=== PATIENT | male | born 1995 | race Caucasian/White ===

== ENCOUNTER 2019-02-18 08:05 | Day surgery (SDC) | payer OTHER ==
[2019-02-18] VITALS (8 sets, daily range): BP systolic 115–128; BP diastolic 66–82
[~2019-02-18] VITALS: Ht 185.4 cm; Wt 90.7 kg
[~2019-02-18 08:05] MED LIST: Bacitracin 50000 Units Vial ONE; Betadine 10% Oint 30gm TOPIC ONE; Bupivacaine 0.25% Inj 30ml INJ ONE; Dexamethasone 4mg/ml vial ONE; Lidocaine 1% Plain 30 ml INJ ONE; ceFAZolin sod 1 GM in NS 55 ML IVPB ONE
[2019-02-18 08:55] LABS: BASOPHILS % (AUTO) 2.4 % (0.0-2.0); EOSINOPHILS % (AUTO) 2.1 % (0.0-3.0); HEMATOCRIT 46.5 % (42.0-52.0); HEMOGLOBIN 15.9 G/DL (14.2-18.0); LYMPHOCYTES % (AUTO) 36.2 % (20.0-45.0); MEAN CORPUSCULAR VOLUME 89 FL (80-99); MONOCYTES % (AUTO) 8.3 % (1.0-10.0); PLATELET COUNT 225 K/UL (150-450); RED BLOOD COUNT 5.25 M/UL (4.70-6.10); RED CELL DISTRIBUTION WIDTH 12.1 % (11.6-14.8); WHITE BLOOD COUNT 5.4 K/UL (4.8-10.8)
[2019-02-18 09:01] LABS: INR 1.1 (0.9-1.1)
[2019-02-18 09:09] LABS: ANION GAP 9 mmol/L (5-15); BLOOD UREA NITROGEN 16 mg/dL (7-18); CALCIUM 9.4 MG/DL (8.5-10.1); CARBON DIOXIDE 26 MMOL/L (21-32); CHLORIDE 104 MMOL/L (98-107); POTASSIUM 4.3 MMOL/L (3.5-5.1); SODIUM 138 MMOL/L (136-145)
--- NOTE | 2019-02-18 09:09 | Pre-Procedure Note/Attestation ---
Pre-Procedure Note/Attestation Complete Prior to Procedure Planned Procedure: bilateral Procedure Narrative: total nail avulsion with matrixectomy and reduction of hypertrophic nail folds bilateral hallux and 2,3,4,5, bilateral Indications for Procedure Pre-Operative Diagnosis: Painful mycotic ingrown toenail bilateral hallux and 2,3,4,5,bilateral Attestation I attest that I discussed the nature of the procedure; its benefits; risks and complications; and alternatives (and the risks and benefits of such alternatives ), prior to the procedure, with the patient (or the patient's legal patient services representative). I attest that, if there was a reasonable possibility of needing a blood transfusion, the patient (or the patient's legal patient services representative) was given the [place] Department [employer] standardized written summary, pursuant to the Sabino Yonas Blood Safety Act ([place] Health and Safety Code # 1645, as amended). I attest that I re-evaluated the patient just prior to the surgery and that there has been no change in the patient's H&P, except as documented below: Chaim Ram DPM February 18, 2019 09:09
[2019-02-18] MEDS ORDERED: ADDERAL20 MG ORAL (10:03)
[2019-02-18] MEDS ORDERED: KLONOPIN0.5 MG ORAL (10:03)
--- NOTE | 2019-02-18 10:06 | Anethesia Preoperative Eval ---
Anesthesia Pre-op PMH/ROS General Date of Evaluation: February 18, 2019 Time of Evaluation: 10:00 Anesthesiologist: KERA Albert ASA Score: ASA 1 Mallampati Score Class I : Soft palate, uvula, fauces, pillars visible Class II: Soft palate, uvula, fauces visible Class III: Soft palate, base of uvula visible Class IV: Only hard plate visible Mallampati Classification: Class I Surgeon: Shermanian Diagnosis: Ingrown toe nails Surgical Procedure: toe nail avulsion with matretoctomy Anesthesia History: none Family History: no anesthesia problems Allergies: Coded Allergies: No Known Allergies (Unverified , 02/17/19) Medications: see eMAR Patient NPO?: Yes NPO Date: February 18, 2019 NPO Time: 00:00 Past Medical History Cardiovascular: Denies: HTN, CAD, OR, valve dz, arrhythmia, other Pulmonary: Denies: asthma, COPD, ROWDY, other Gastrointestinal/Genitourinary: Denies: GERD, CRI, ESRD, other Neurologic/Psychiatric: Reports: depression/anxiety, other - ADHD; Denies: dementia, CVA, TIA Endocrine: Denies: DM, hypothyroidism, steroids, other HEENT: Denies: cataract (L), cataract (R), glaucoma, MARSHALL (L), MARSHALL (R), other Hematology/Immune: Denies: anemia, DVT, bleeding disorder, other Musculoskeletal/Integumentary: Reports: other - ingrown toe nail xx 9 PMH Narrative: as noted above PSxH Narrative: wisdom teeth extraction Anesthesia Pre-op Phys. Exam Physician Exam Last Vital Signs Date Time Temp Pulse Resp B/P (MAP) Pulse Ox O2 Delivery O2 Flow Rate FiO2 02/18/19 09:54 98.5 62 18 123/66 95 Room Air Constitutional: NAD Neurologic: other - alert & oriented Cardiovascular: RRR Respiratory: CTA Gastrointestinal: S/NT/ND Airway Exam Mallampati Score: Class I Neck: FROM TMD: > 3 FB ROM: full Dentures: no upper, no lower Anesthesia Pre-op A/P Labs Hematology Test 02/18/19 08:35 White Blood Count 5.4 K/UL (4.8-10.8) Red Blood Count 5.25 M/UL (4.70-6.10) Hemoglobin 15.9 G/DL (14.2-18.0) Hematocrit 46.5 % (42.0-52.0) Mean Corpuscular Volume 89 FL (80-99) Mean Corpuscular Hemoglobin 30.3 PG (27.0-31.0) Mean Corpuscular Hemoglobin Concent 34.2 G/DL (32.0-36.0) Red Cell Distribution Width 12.1 % (11.6-14.8) Platelet Count 225 K/UL (150-450) Mean Platelet Volume 7.3 FL (6.5-10.1) Neutrophils (%) (Auto) 51.0 % (45.0-75.0) Lymphocytes (%) (Auto) 36.2 % (20.0-45.0) Monocytes (%) (Auto) 8.3 % (1.0-10.0) Eosinophils (%) (Auto) 2.1 % (0.0-3.0) Basophils (%) (Auto) 2.4 % (0.0-2.0) H Coagulation Test 02/18/19 08:35 Prothrombin Time 11.1 SEC (9.30-11.50) Prothromb Time International Ratio 1.1 (0.9-1.1) Activated Partial Thromboplast Time 26 SEC (23-33) Chemistry Test 02/18/19 08:35 Sodium Level 138 MMOL/L (136-145) Potassium Level 4.3 MMOL/L (3.5-5.1) Chloride Level 104 MMOL/L (98-107) Carbon Dioxide Level 26 MMOL/L (21-32) Anion Gap 9 mmol/L (5-15) Blood Urea Nitrogen 16 mg/dL (7-18) Creatinine 1.0 MG/DL (0.55-1.30) Estimat Glomerular Filtration Rate > 60 mL/min (>60) Glucose Level 104 MG/DL (74-106) Calcium Level 9.4 MG/DL (8.5-10.1) Troponin I 0.000 ng/mL (0.000-0.056) Studies Pre-op Studies: EKG - SR Risk Assessment & Plan Assessment: ASA 1, ok to proceed Plan: MAC Status Change Before Surgery: No Pre-Antibiotics Drug: Chinyere Shannon CRNA February 18, 2019 10:06
--- NOTE | 2019-02-18 11:06 | Diagnostic Imaging Report ---
Indication: Foot Pain Comparison: None Findings: 3 views of the right foot were obtained. No acute fractures, malalignment, erosions or periostitis are identified. Soft tissues are unremarkable. Impression: Negative exam
[2019-02-18] MEDS ORDERED: Midazolam 2mg/2ml Inj ONE (11:28)
[2019-02-18] MEDS ORDERED: fentaNYL 100 mcg/2 mL IV ONE (11:28)
[2019-02-18] MEDS ORDERED: Propofol 200mg/20ml IV ONE (11:29)
[2019-02-18] MEDS ORDERED: Sterile Water Irrig 1000ml IRRIG ONE (11:40)
[2019-02-18] MEDS ORDERED: NS Irrig 1000ml ONE (11:40)
[2019-02-18] MEDS ORDERED: LR 1000ml ONE (11:40)
--- NOTE | 2019-02-18 12:40 | Immediate Post-Op Evaluation ---
Immediate Post-Op Evalulation Immediate Post-Op Evalulation Procedure: toe nail removals Date of Evaluation: February 18, 2019 Time of Evaluation: 12:40 Nausea: No Vomiting: No Misa Brito MD February 18, 2019 12:40
--- NOTE | 2019-02-18 12:41 | Brief Operative Note ---
Immediate Post Operative Note Operative Note Pre-op Diagnosis: Painful mycotic ingrown toenail bilateral hallux and 2,3,4,5,bilateral Procedure: total nail avulsion bilateral foot hallux and 2,3,4,5,. matricectomy right hallux medial. 3rd lateral , 5th toe excision of nail fold . matrixectomy left hallux medial and lateral 3rd , nail fold excision 5th bilateral and distal . Post-op Diagnosis: same as pre-op Post-op Diagnosis: same as pre-op Surgeon: chaim ram Anesthesiologist: dr berry Anesthesia: MAC Specimen: yes Complications: none Condition: stable Fluids: 0 Estimated Blood Loss: none Drains: none Tourniquet time: 20 Implant(s) used?: No Chaim Ram DPM February 18, 2019 12:41
[2019-02-18] MEDS ORDERED: fentaNYL 100 mcg/2 mL IV PRN (12:45)
--- NOTE | 2019-02-18 13:48 | 48 Hour Post Anesthesia Eval ---
Post Anesthesia Evaluation Procedure: toe nail removals Date of Evaluation: February 18, 2019 Time of Evaluation: 13:48 Nausea: No Vomiting: No Misa Brito MD February 18, 2019 13:48
--- NOTE | 2019-02-18 20:15 | Pre-op HX & Phy Repo 2 SIG ---
DATE OF ADMISSION: 02/18/2019 DATE OF SCHEDULED SURGERY: The patient is scheduled to have surgery today, 02/18/2019 at [facility]. HISTORY OF PRESENT ILLNESS: This is a 23-year-old male who presents to the office with chief complaint of painful mycotic ingrown toenails for the past 15 years. The patient has tried numerous conservative treatment including oral medication, reduction of left nail in combination with laser, but nothing has worked and the pain and deformity occurs upon ambulation with shoe. The patient would like to opt for surgical intervention at this time. He reports no recent nausea, vomiting, chills, or shortness of breath. The patient is scheduled to have surgery today at [facility]. PAST MEDICAL HISTORY: Mood disorder. PAST SURGICAL HISTORY: None pertinent. ALLERGIES: No known drug allergies. FAMILY HISTORY: No pertinent findings. PHYSICAL EXAMINATION: VITAL SIGNS: Temperature 98.2, pulse 66, respiratory rate 14, and blood pressure 120/80. DERMATOLOGICAL: No open lesion is noted. It is noticed that the patient, 1 to 5 bilaterally, have nails that are thick, discolored, hypertrophic, and pain on palpation on most nails. MUSCULOSKELETAL: Full muscle strength was noticed. No pain on palpation of any bony prominence. NEUROLOGICAL: The patient responds to touch, vibration and temperature. ASSESSMENT: This is a 23-year-old male with bilateral painful mycotic ingrown toenails. The patient has tried conservative measures, however, he still experiences daily pain. I recommended surgery as an extensive management. The risks, benefits, and alternatives were discussed with the patient in detail, who understands and would like to proceed with surgical intervention. All the patient's questions have been answered. The patient is scheduled to have surgery today at [facility]. Chaim Ram D.P.M. DR: GENE JOB#: [id number] CC:
--- NOTE | 2019-02-20 04:15 | Operative Note - Dictated ---
DATE OF OPERATION: 02/18/2019 SURGEON: Chaim Ram D.P.M. PREOPERATIVE DIAGNOSIS: Painful mycotic ingrown toenail, bilateral foot 1 through 5 with hypertrophic skin, nail fold, bilateral 2-5 and hallux. POSTOPERATIVE DIAGNOSIS: Painful mycotic ingrown toenail, bilateral foot 1 through 5 with hypertrophic skin nail fold bilateral 2-5 and hallux. TITLE OF OPERATION: 1. Total nail avulsion, left hallux digit and 2, 3, 4, 5 and total nail avulsion,right hallux, and 2, 3, 4, 5. 2. Matricectomy, medial left hallux bilateral ; matrixectomy, lateral third toe bilateral ; excision of the nail fold fifth, bilateral. 3. excision of the nail fold fifth, bilateral at bilateral borders and distal nail fold HEMOSTASIS: Pneumatic ankle tourniquet bilateral. ESTIMATED BLOOD LOSS: Negligible. MATERIALS USED: Dressing consisted of Xeroform, Betadine ointment, 4 x 4, Lauri, and Coban. INJECTABLE: 30 mL of 0.5% Marcaine and 1% lidocaine was injected in the ratio of 1:1 in each of the toe in the Dasilva fashion block. PATHOLOGY: Nail and nail fold resected, was sent to pathology and further study. COMPLICATIONS: None. CONDITION: Stable. DESCRIPTION OF THE PROCEDURE IN DETAIL: The patient was brought into the operating room and assisted on the operating table in supine position. He was well padded to avoid any excessive pressure. The foot was then scrubbed and prepared in the usual aseptic manner. 1 g of Ancef was given preoperatively to the patient. Local anesthesia block was administered consisting of 30 mL of 1:1 mixture of 0.5% Marcaine and 1% lidocaine. The foot was then scrubbed, prepared, and draped in the usual aseptic manner. Attention was then directed to the left foot. Using a surgical spatula, attention was then directed to the first hallux where the nail was noticed to be hypertrophic, curving on its medial fold. The lateral, medial, dorsal and plantar attachment of the nail was freed and the nail was excised. At this time, using a skin nipper, all scar and remnant of the fungal were removed from the toe. At this time, using a curette, approximately 2 mm of the root on the medial side was excised, and using a skin nipper, the medial, lateral, and distal nail fold was then excised as well. It should be noted that the same procedure was then performed on the left hallux. At this time, attention was directed to the second toe where the nail appears to be mycotic. Using surgical spatula, medial and lateral plantar attachments of the nail was severed and the nail was excised and the area was then cleaned using the skin nipper to eliminate all the debris. Attention was then directed to the third toe. It was also noticed to be ingrown on its lateral border. Using the surgical spatula, attachment from medial and lateral plantar were done and the nail was excised and passed from the field. At this time, using the curette, 2 mm of the lateral border was then excised and cauterized. Attention was directed to the fourth toe. The nail was avulsed. Attention was then directed to the fifth toe. It was noticed to be distal hypertrophic and medial and lateral hypertrophic. Using the spatula, the nail was excised. The same procedure was done for the right foot as well. After the procedure was done, clotrimazole cream in combination with betidine was applied to the digits hallux 1 to 5 bilaterally. Gauze, Kerlix, and Coban was applied. At this time, the tourniquet was deflated and hyperemia was noted to digits 1 through 5. The patient tolerated the procedure and anesthesia well and was transferred from recovery to postop with all vital signs stable. No complications from the surgery. The patient will be discharged home upon clearance from anesthesia. Chaim Ram D.P.M. DR: SHANEKA JOB#: [id number] CC: LEANDRO
--- NOTE | 2019-03-18 12:45 | Cardiology Report ---
APPROVED REPORT EKG Measurement Heart [id number] Sinus bradycardia with sinus arrhythmia Right axis deviation ST elevation, consider inferior injury or acute infarct Consider right ventricular involvement in acute inferior infarct Abnormal ECG
== END 2019-02-18 14:00 | disposition home or self-care (01) ==
LOC: SUR 08:05
DX: L60.0 Ingrowing nail (principal); L91.9 Hypertrophic disorder of the skin, unspecified; F32.9 Major depressive disorder, single episode, unspecified; F41.9 Anxiety disorder, unspecified
CPT/HCPCS: 11730; 11732; 36415; 73630; 80048; 84484; 85025; 85610; 85730; 93005; J0690; J1100; J2001; J2250; J2704; J3010; J3490; 94003; 94150